=== PATIENT | female | born 1975 | race Caucasian/White ===

== ENCOUNTER 2020-07-21 06:54 | Outpatient (NON) | payer BC, SELFPAY ==
[2020-07-22 01:18] LABS: SARS-CoV-2 RNA PCR Negative
== END 2020-07-21 06:55 ==
PROVIDERS: Visit Provider Family Medicine
DX: Z20.828 Contact with and (suspected) exposure to other viral communicable diseases (principal); J02.9 Acute pharyngitis, unspecified; R50.9 Fever, unspecified
CPT/HCPCS: 87635; C9803; U0003

== ENCOUNTER 2020-07-24 15:48 | Emergency (ER) | payer BC, SELFPAY ==
[2020-07-24 15:54] VITALS: BP 112/76; PULSE 112; RESP 12; TEMP 36.9; O2SAT 99
--- NOTE | 2020-07-24 16:45 | ED.NAVMDI ---
HPI - Nausea/Vomiting/Diarrhea General Chief complaint: Nausea/Vomiting/Diarrhea Stated complaint: nausea/diarrhea/fever Source: patient and RN notes reviewed Limitations: no limitations History of Present Illness HPI Narrative: The patient, a non-smoker/nondrinker with a history of gallbladder disease, presents with nausea. Patient states she has nausea like her prior episodes before cholecystectomy in August of this year. At that time postop pathology showed chronic cholecystitis with focal fibrosis, sludge, chronic inflammation. During her work-up she had a normal CT scan of the abdomen, HIDA scan showing EF of 23%, and stable ultrasound showing only sludge. She complains of a 2-week history now of nausea, mild epigastric discomfort essentially unrelieved with recommended OTC Pepcid. There is associated weight loss of 7 to 10 pounds,and a T-max last week 100.2. 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 Her LMP was earlier this month about 3 weeks ago, she declines testing. Patient advised to continue Pepcid, and see prior doctors. Related Data Allergies Allergy/AdvReac Type Severity Reaction Status Date / Time clindamycin Allergy Unknown NAUSEA, Verified 07/24/20 16:54 TONGUE SWELLING erythromycin base Allergy Unknown Rash Verified 07/24/20 16:54 Penicillins Allergy Unknown Rash/HIVES Verified 07/24/20 16:54 diphenhydramine AdvReac Unknown DROWSINESS Verified 07/24/20 16:54 isopropyl alcohol AdvReac Unknown SKIN Verified 07/24/20 16:54 IRRITATION Review of Systems Review of Systems: Narrative: General/Constitutional: No weight loss,fever Eyes: N0: Redness,discharge Ears/Nose/Throat: No: Epistaxis,ear discharge Respiratory: Denies: Hemoptysis Gastrointestinal: No Vomiting, Bleeding-rectal Skin: No Lumps, eruption Neurologic: No Focal Weakness,Sz Hematologic: Denies: Petechiae/Purpura Psychiatric: No: Suicida ideationl All Other Systems: Reviewed and Negative [facility] Past Medical History Medical History (Updated 07/25/20 @ 00:00 by Apryl Garnica) Anxiety Surgical History Surgical History H/O hemorrhoidectomy As an H/O wisdom tooth extraction Approximately 2014 History of throat surgery Approximately 2009 Status post laparoscopic cholecystectomy 08/24/19 Family History Family History Grandparent Family history of lung cancer Family history of malignant neoplasm of breast Other Diabetes mellitus Social History Social History Smoking status: Never smoker Alcohol intake: current 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 There is no relevant family history pertinent to the presenting complaint Exam Narrative: Exam Narrative: General Appearance: Well appearing, Conjunctiva clear Mouth/Throat: Normal appearing, Normal lips Neck: Supple Respiratory: Airway patent, No respiratory distress Cardiovascular: RRR Abdomen: Soft, Non-tender, Musculoskeletal: Full ROM Skin: Warm, Dry Neurological: A&O x3,, Normal affect Course Vital Signs Vital signs: Vital Signs Temperature 98.5 F 07/24/20 15:54 Pulse Rate 112 H 07/24/20 15:54 Respiratory Rate 12 07/24/20 15:54 Blood Pressure 112/76 07/24/20 15:54 Pulse Oximetry 99 07/24/20 15:54 Temperature 98.5 F 07/24/20 15:54 Pulse Rate 112 H 07/24/20 15:54 Respiratory Rate 12 07/24/20 15:54 Blood Pressure 112/76 07/24/20 15:54 Pulse Oximetry 99 07/24/20 15:54 Discharge Plan Discharge Clinical Impression: Nausea, Weight
== END 2020-07-24 17:03 | disposition home or self-care (01) ==
PROVIDERS: Emergency Provider Emergency Medicine; PCP Family Medicine
DX: R11.0 Nausea (principal); R63.4 Abnormal weight loss; Z68.25 Body mass index [BMI] 25.0-25.9, adult
CPT/HCPCS: 99213; G0463

== ENCOUNTER → 2020-11-10 00:54 | Outpatient (CLI) | payer BC, SELFPAY ==
[2020-11-10 19:49] LABS: SARS-CoV-2 RNA PCR Negative
== END ==
PROVIDERS: PCP Family Medicine; Visit Provider Internal Medicine Gastroenterology
DX: Z01.812 Encounter for preprocedural laboratory examination (principal); Z20.822 Contact with and (suspected) exposure to COVID-19
CPT/HCPCS: C9803; U0003; U0005

== ENCOUNTER 2020-11-13 01:59 | Day surgery (SDC) | payer BC, SELFPAY ==
[2020-10-27 14:25] VITALS: BMI 24.5
[2020-11-13 09:01] VITALS: BP 99/71; PULSE 102; RESP 18; TEMP 36.7; O2SAT 98; BMI 24.0
--- NOTE | 2020-11-13 09:07 | P.PNAN_ITS ---
Anes - Initial Pre Proc Eval Procedure: Operation Date: 11/13/20 10:00 Proposed Procedures p Esophagogastroduodenoscopy & Colonoscopy - Aki Lantigua MD Date/Time: 11/13/20 09:07 Surgeon: Aki Lantigua MD Pre Op Diagnosis: Loose stools, Nausea, abdominal pain Patient Data Age: 45 Gender: F Height: 5 ft 3 in Weight: 61.5 kg Last Vital Signs Temp 98.1 F 11/13/20 09:01 Pulse 102 H 11/13/20 09:01 Resp 18 11/13/20 09:01 BP 99/71 L 11/13/20 09:01 Pulse Ox 98 11/13/20 09:01 Allergies Allergy/AdvReac Type Severity Reaction Status Date / Time clindamycin Allergy Unknown NAUSEA, Verified 11/13/20 08:59 TONGUE SWELLING erythromycin base Allergy Unknown Rash Verified 11/13/20 08:59 Penicillins Allergy Unknown Rash/HIVES Verified 11/13/20 08:59 diphenhydramine AdvReac Unknown DROWSINESS Verified 11/13/20 08:59 isopropyl alcohol AdvReac Unknown SKIN Verified 11/13/20 08:59 IRRITATION Home Medications Medication Instructions Recorded Confirmed Type ondansetron HCl 4 mg tablet 4 mg PO Q8H 09/15/20 09/18/20 History prochlorperazine maleate 10 mg 10 mg PO Q8H PRN 09/15/20 09/18/20 History tablet All Day Allergy (cetirizine) 10 mg PO DAILY 10/27/20 10/27/20 History dicyclomine See Rx Instructions PO QID PRN 10/27/20 10/27/20 History Patient hx anesthesia problems: none Family hx anesthesia problems: none PMFSH Past Medical History Medical History Anxiety Surgical History Surgical History H/O hemorrhoidectomy As an infant H/O wisdom tooth extraction Approximately 2014 History of throat surgery Approximately 2008 Status post laparoscopic cholecystectomy 08/24/19 Family History Family History Grandparent Family history of lung cancer Family history of malignant neoplasm of breast Other Diabetes mellitus Social History Social History (Updated 09/18/20 @ 11:01 by Janette Hernandez CMA) Smoking status: Never smoker Alcohol intake: current Alcohol use details: OCCATIONALLY Substance use: never Living arrangements: with family 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 Questions were solicited and answers provided to the satisfaction of the patient/family/POA.
[2020-11-13] MEDS: LACTATED RINGERS 1,000 ML 150 ML IV CONT (09:11)
[2020-11-13] MEDS: BENZOCAINE (*SP) 60 ML SPRAY CAN (HURRICAINE) 1 SPRAY MUCOUS MEM (09:26)
--- NOTE | 2020-11-13 09:38 | PM.HPGS ---
History of Present Illness History of Present Illness Consent: Risks, benefits, and alternatives have been discussed and questions answered. Patient agrees to proceed with procedure. Chief complaint: Loose stools, Nausea, abdominal pain Narrative: Becca Bowens is a 45 year old female with abdominal cramping and nausea after eating certain meals, better after changed her diet, using bentyl prn Review of Systems Constitutional: Constitutional: Denies headache(s) and Denies weakness Eyes: Eyes: Denies blurry vision ENT: Reports Normal hearing present, Denies headache(s) and Denies neck pain Cardiovascular: Cardiovascular: Denies chest pain and Denies dyspnea Respiratory: Respiratory: Denies dyspnea Gastrointestinal: Gastrointestinal: Reports no additional gastrointestinal complaints Genitourinary: Genitourinary: Denies dysuria Musculoskeletal: Musculoskeletal: Denies neck pain Integumentary/Breasts: Skin/Breast: Denies dry skin Neurologic: Reports Normal hearing present, Denies headache(s) and Denies weakness Psychiatric: Psychiatric: Denies anxiety Endocrine: Endocrine: Denies change in body appearance Hematologic/Lymphatic: Hematologic/Lymphatic: Denies easy bleeding Allergic/Immunologic: Allergic/Immunologic: Denies urticaria PMF Past Medical History Medical History (Updated 11/13/20 @ 09:39 by Aki Lantigua MD) Anxiety Colon cancer screening Epigastric pain Nausea Surgical History Surgical History H/O hemorrhoidectomy As an infant H/O wisdom tooth extraction Approximately 2014 History of throat surgery Approximately 2008 Status post laparoscopic cholecystectomy 08/24/19 Family History Family History Grandparent Family history of lung cancer Family history of malignant neoplasm of breast Other Diabetes mellitus Social History Social History (Updated 09/18/20 @ 11:01 by Janette Hernandez CMA) Smoking status: Never smoker Alcohol intake: current Alcohol use details: OCCATIONALLY Substance use: never Living arrangements: with family 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 Gender identity (if verbalized by the patient): Female Spiritual care concerns: No Meds Home Medications and Allergies Home Medications Medication Instructions Recorded Confirmed Type ondansetron HCl 4 mg tablet 4 mg PO Q8H 09/15/20 09/18/20 History prochlorperazine maleate 10 mg 10 mg PO Q8H PRN 09/15/20 09/18/20 History tablet All Day Allergy (cetirizine) 10 mg PO DAILY 10/27/20 10/27/20 History dicyclomine See Rx Instructions PO QID PRN 10/27/20 10/27/20 History Allergies Allergy/AdvReac Type Severity Reaction Status Date / Time clindamycin Allergy Unknown NAUSEA, Verified 11/13/20 08:59 TONGUE SWELLING erythromycin base Allergy Unknown Rash Verified 11/13/20 08:59 Penicillins Allergy Unknown Rash/HIVES Verified 11/13/20 08:59 diphenhydramine AdvReac Unknown DROWSINESS Verified 11/13/20 08:59 isopropyl alcohol AdvReac Unknown SKIN Verified 11/13/20 08:59 IRRITATION Vital Signs Vital Signs - 24 hr 11/13/20 09:01 Temperature 98.1 F Pulse Rate 102 H Respiratory Rate 18 Blood Pressure 99/71 L Pulse Oximetry 98 Exam Const: General: comfortable and no acute distress HENMT: General nose exam: Normal nares present Eyes: General: appearance normal, both eyes and all related structures Neck: Neck: no JVD Resp: Auscultation: clear to auscultation bilaterally Cardio: Rate: regular rate Rhythm: regular rhythm GI: Inspection: non-distended GI Palp: Yes Soft to palpation Skin: General skin exam: normal color Neuro: General: gait normal Speech: normal speech Extrem: General: normal to inspection Psych: Mental Status: mental status grossly normal Assessment and Plan A
[2020-11-13 09:57] VITALS: BP 89/51; PULSE 92; RESP 21; O2SAT 98
[2020-11-13 10:07] VITALS: BP 99/56; PULSE 82; RESP 13; O2SAT 100
[2020-11-13 10:17] VITALS: BP 99/62; PULSE 80; RESP 20; O2SAT 100
== END 2020-11-13 10:28 | disposition home or self-care (01) ==
PROVIDERS: PCP Family Medicine; Visit Provider Internal Medicine Gastroenterology
PROC: 0DJ08ZZ Inspection of Upper Intestinal Tract, Via Natural or Artificial Opening Endoscopic (ICD-10-PCS; CPT 43235; principal; 2020-11-13 10:00)
DX: R11.0 Nausea (principal); R10.13 Epigastric pain; R10.30 Lower abdominal pain, unspecified; Z12.11 Encounter for screening for malignant neoplasm of colon; K64.8 Other hemorrhoids; F41.9 Anxiety disorder, unspecified
CPT/HCPCS: 43239; 45378; 88305; J2704; J7120

== ENCOUNTER → 2021-02-22 17:58 | Outpatient (CLI) | payer BC, SELFPAY ==
--- NOTE | ~2021-02-22 | XR_ITS ---
EXAMINATION:XR cervical spine min 6V DATE: 02/22/2021 18:39 INDICATION: Neck pain TECHNIQUE: AP, lateral in neutral, flexion, extension, bilateral oblique, lateral swimmers and odonto id views of the cervical spine are provided. COMPARISON: None FINDINGS: Alignment is normal. There is no laxity with flexion or extension. There is mild multilevel facet and uncovertebral joint osteoarthritis. The odontoid is intact. No fracture is identified. The re is mild loss of intervertebral disc space height at C6-7. Prevertebral soft tissues are normal. IMPRESSION: 1. Mild cervical spondylosis without acute findings. Reviewed, dictated and finalized at location B.
--- NOTE | ~2021-02-22 | XR_ITS ---
EXAMINATION: XR thoracic spine 2V DATE: 02/22/2021 18:39 INDICATION: Thoracic back pain TECHNIQUE: AP and lateral views of the thoracic spine are obtained. COMPARISON: None. FINDINGS: There is dextrocurvature of the midthoracic spine. Bone alignment is normal. There is no fr acture. The vertebral body heights are maintained. There is mild loss of intervertebral disc space he ight in the mid and lower thoracic spine. Small degenerative osteophytes project from the anterior en dplates of multiple vertebral bodies. Surgical clips in the right upper quadrant are likely from prio r cholecystectomy. IMPRESSION: 1. Mild thoracic spondylosis without acute findings. Reviewed, dictated and finalized at location B.
== END ==
PROVIDERS: Visit Provider Chiropractor
DX: R20.2 Paresthesia of skin (principal); M47.892 Other spondylosis, cervical region
CPT/HCPCS: 72052; 72070

== ENCOUNTER 2021-03-05 15:37 | Outpatient (CLI) | payer BC, SELFPAY ==
--- NOTE | ~2021-03-05 | MM_ITS ---
EXAMINATION: MM screening liya BI w j carlos HISTORY: Screening TECHNIQUE: Craniocaudal and mediolateral oblique 3-D tomosynthesis images were obtained and synthetic 2-D images were generated. CAD analysis was submitted and interpreted. COMPARISON: Comparison to multiple prior studies sequentially, with oldest reviewed study dated 02/15. BREAST PARENCHYMAL COMPOSITION: The breasts are heterogeneously dense, which may obscure small masses . FINDINGS: There is no evidence of suspicious mass, calcification, or architectural distortion to sugg est malignancy in either breast. There has been no suspicious interval change. IMPRESSION: 1. No mammographic evidence of malignancy. 2. Recommend routine screening mammography in one year. BI-RADS Category 1: Negative Reviewed, dictated and finalized at location A.
== END 2021-03-05 15:38 | disposition home or self-care (01) ==
LOC: ANHIMG 15:40
PROVIDERS: PCP Family Medicine; Visit Provider Nurse Practitioner Obstetrics & Gynecology
DX: Z12.31 Encounter for screening mammogram for malignant neoplasm of breast (principal)
CPT/HCPCS: 77063; 77067

== ENCOUNTER → 2021-03-14 06:58 | Outpatient (CLI) | payer BC, SELFPAY ==
--- NOTE | ~2021-03-14 | MR_ITS ---
EXAMINATION: MR cervical spine wo con DATE: 03/14/2021 07:39 INDICATION: Disc bulge. TECHNIQUE: Magnetic resonance imaging (MRI) of the cervical spine was performed without intravenous c ontrast. Sequences included sagittal T2-weighted FSE, sagittal T2-weighted FS FSE, sagittal T1-weight ed FSE, axial MERGE, and axial T2-weighted FSE. COMPARISON: Cervical spine radiographs 02/22/2021 FINDINGS: Bone alignment is normal. Vertebral body heights are normal. There is mildly decreased disc height at C6-C7. The spinal cord signal intensity is normal. The following disc levels are specifica lly discussed: C2-C3: The disc does not extend beyond the endplate margin. There is no uncovertebral joint osteoarth ritis. There is mild bilateral facet joint osteoarthritis. There is no neural foraminal stenosis. The re is no central canal stenosis. C3-C4: There is a left central extrusion. There is no uncovertebral joint osteoarthritis. There is no facet joint osteoarthritis. There is no neural foraminal stenosis. There is mild central canal steno sis. C4-C5: The disc does not extend beyond the endplate margin. There is no uncovertebral joint osteoarth ritis. There is mild left facet joint osteoarthritis. There is no neural foraminal stenosis. There is no central canal stenosis. C5-C6: There is a central protrusion. There is mild bilateral uncovertebral joint osteoarthritis. The re is no facet joint osteoarthritis. There is mild left neural foraminal stenosis. There is mild cent ral canal stenosis. C6-C7: The disc is bulging. There is moderate bilateral uncovertebral joint osteoarthritis. There is no facet joint osteoarthritis. There is mild bilateral neural foraminal stenosis. There is mild centr al canal stenosis. C7-T1: The disc does not extend beyond the endplate margin. There is no uncovertebral joint osteoarth ritis. There is mild bilateral facet joint osteoarthritis. There is no neural foraminal stenosis. The re is no central canal stenosis. IMPRESSION: 1. Mild cervical spondylosis. Reviewed, dictated and finalized at location A.
== END ==
PROVIDERS: PCP Family Medicine; Visit Provider Chiropractor
DX: M50.20 Other cervical disc displacement, unspecified cervical region (principal); M47.892 Other spondylosis, cervical region
CPT/HCPCS: 72141

== ENCOUNTER → 2021-08-08 02:44 | Outpatient (CLI) | payer BC, SELFPAY ==
[2021-08-08 20:49] LABS: SARS-CoV-2 RNA PCR Negative
== END ==
PROVIDERS: PCP Family Medicine; Visit Provider Family Medicine
DX: R68.89 Other general symptoms and signs (principal); Z20.822 Contact with and (suspected) exposure to COVID-19
CPT/HCPCS: C9803; U0003; U0005

== ENCOUNTER 2022-08-30 14:53 | Outpatient (CLI) | payer BC, SELFPAY ==
--- NOTE | ~2022-08-30 | MM_ITS ---
EXAMINATION: MM screening liay BI w j carlos HISTORY: Screening TECHNIQUE: Craniocaudal and mediolateral oblique 3-D tomosynthesis images were obtained and synthetic 2-D images were generated. CAD analysis was submitted and interpreted. COMPARISON: Comparison to multiple prior studies sequentially, with oldest reviewed study dated 02/15. BREAST PARENCHYMAL COMPOSITION: The breasts are heterogeneously dense, which may obscure small masses . FINDINGS: There is no evidence of suspicious mass, calcification, or architectural distortion to sugg est malignancy in either breast. There has been no suspicious interval change. IMPRESSION: 1. No mammographic evidence of malignancy. 2. Recommend routine screening mammography in one year. BI-RADS Category 1: Negative Reviewed, dictated and finalized at location A. PUSHER
== END 2022-08-30 14:54 | disposition home or self-care (01) ==
LOC: ANHIMG 14:55
PROVIDERS: PCP Nurse Practitioner Family; Visit Provider Nurse Practitioner Obstetrics & Gynecology
DX: Z12.31 Encounter for screening mammogram for malignant neoplasm of breast (principal)
CPT/HCPCS: 77063; 77067

== ENCOUNTER 2025-02-17 08:27 | Outpatient (CLI) | payer BC, SELFPAY ==
--- OUTSIDE RECORDS SUMMARY | 2025-02-17 08:30 | XMS_ITS | Clinical Summary ---
Author Organization [facility] [employer] Address [address] [place] [address] Care Team Providers Care Adjunct Business Instructor Name Role Phone Florencia Tijerina MD Primary Care Provider [phone] Source Comments [facility],non-owned Affiliates and Associated Physician Practices is amultiple site organization consisting of ambulatory clinics and hospital sitesin [place], [place], [place] and [place]. This disclosure is being madepursuant to the Care Everywhere program and may not contain all information available regarding this patient. Last updated 18.[facility] [employer] Allergies Active Allergy Reactions Criticality Noted Date Comments Erythromycin Urticaria Medium 09/09/2023 Penicillins Urticaria Medium 09/09/2023 Medications * Be aware that medications may not be up to date on this document. Alwaysverify current medications with the patient. 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 Gender Identity Not on file Sexual Orientation Not on file Last Filed Vital Signs Vital Sign Reading Time Taken Comments Blood Pressure 112/69 09/09/2023 2:01 PM CLEANING ATTENDANT Pulse 83 09/09/2023 2:01 PM CLEANING ATTENDANT Temperature - - Respiratory Rate - - Oxygen Saturation - - Inhaled Oxygen Concentration - - Weight 68 kg (150 lb) 09/09/2023 2:01 PM CLEANING ATTENDANT Height - - Body Mass Index - - Plan of Treatment Health Maintenance Due Date Last Done Comments COLOGUARD (AGES 45-75) - COL ON CA SCREENING 1975 COLON MONITORING 1975 COLONOSCOPY - COLON CA SCREENING 1975 CT COLONOGRAPHY - COLON CA SCREENING 1975 Colorectal Cancer Screening 1975 FIT - COLON CA SCREENING 1975 FLEX SIG - COLON CA SCREENING 1975 MAMMOGRAM 1975 HIV SCREENING 10/14/1990 HEPATITIS C SCREENING 10/10/1993 DTAP/TDAP/TD VACCINES (1 - Tdap) 10/14/1994 HEPATITIS B VACCINE (1 of 3 - 19+ 3-dose series) 10/14/1994 PAP SMEAR 10/14/1996 COVID-19 VACCINE (4 - 2023-2 5 season) 2024 07/30/2021, 01/27/2021, 01/06/2021 DEPRESSION SCREENING 08/04/2024 08/28/2023 INFLUENZA VACCINE (#1) 2025 ZOSTER VACCINE (1 of 2) 10/14/2025 LIPID TESTING 07/03/2028 07/03/2023 HIB VACCINE Aged Out No longer eligi ble based on patient's age to complete this topic HPV VACCINE Aged Out No longer eligi ble based on patient's age to complete this topic MENINGOCOCCAL (Group B) VACCINE SHARED DECISION-MAKING Aged Out No longer eligible based on patient's age to complete this topic MENINGOCOCCAL GROUPS A/C/Y/W VACCINE Aged Out No longer eligible b ased on patient's age to complete this topic Insurance AKI ANTHEM Care Teams Adjunct Business Instructor Relationship Specialty Start Date End Date Florencia Tijerina MD [address] [place] [address] PCP - General 08/25/19
[2025-02-17 10:18] LABS: Hematocrit 40.4 % (37.0-47.0); Hemoglobin 13.2 g/dL (12.0-15.0); Immature Granulocyte Percent A 0.2 % (0-0.5); Lymphocytes Absolute Auto 1.51 K/mm3 (0.9-3.2); Mean Corpuscular HGB Conc 32.7 g/dl (32-36); Mean Corpuscular Hemoglobin 31.7 pg (26-34); Mean Corpuscular Volume 96.9 fl (80-100); Nucleated Red Blood Cells Absolute Auto 0.000 K/mm3 (0.0-0.012); Nucleated Red Blood Cells Perc 0.0 % (0.0-0.2); Platelet Count Result 206 k/mm3 (150-375); Red Blood Count 4.17 M/mm3 (4.2-5.4); White Blood Count 4.6 K/mm3 (4.5-10.0)
[2025-02-17 10:35] LABS: Alanine Aminotransferase 14 U/L (6-35); Albumin Level 4.1 g/dL (3.5-5.1); Alkaline Phosphatase 53 U/L (38-126); Anion Gap 5 mmol/L (4-12); Aspartate Amino Transferase 36 U/L (14-36); Bilirubin,Total 0.4 mg/dL (0.2-1.3); Blood Urea Nitrogen 14 mg/dL (7-17); Calcium 9.0 mg/dL (8.4-10.2); Carbon Dioxide 29 mmol/L (22-30); Chloride 103 mmol/L (98-107); Cholesterol 169 mg/dL (0-200); Estimated Glomerular Filt Rate > 60; Glucose 87 mg/dL (65-110); HDL Direct 68 mg/dL; Potassium 4.1 mmol/L (3.4-5.0); Sodium 137 mmol/L (137-145); Total Protein 7.0 g/dL (6.3-8.2); Triglycerides 47 mg/dL (<150)
[2025-02-17 11:10] LABS: Thyroid Stimulating Hormone 3.490 uIU/mL (0.465-4.680)
== END 2025-02-17 08:28 | disposition home or self-care (01) ==
LOC: ANHGOSHLAB 08:27
PROVIDERS: PCP Family Medicine; Visit Provider Student in an Organized Health Care Education/Training Program
DX: Z00.00 Encounter for general adult medical examination without abnormal findings (principal); Z13.220 Encounter for screening for lipoid disorders; Z13.29 Encounter for screening for other suspected endocrine disorder; Z13.0 Encounter for screening for diseases of the blood and blood-forming organs and certain disorders involving the immune mechanism; F41.1 Generalized anxiety disorder
CPT/HCPCS: 36415; 80053; 80061; 84443; 85025

== ENCOUNTER 2025-03-08 08:54 | Emergency (ER) | payer BC, SELFPAY ==
--- NOTE | ~2025-03-08 | XR_ITS ---
XR knee LT min 4V 03/08/2025 10:28 INDICATION: Left knee pain after recent injury PROCEDURE: 4 views left knee COMPARISON: No prior studies for comparison. FINDINGS: Fracture, dislocation or subluxation is not identified. No significant joint effusion. The soft tissues appear within normal limits. No foreign bodies are identified. IMPRESSION: 1: NO ACUTE BONE OR JOINT ABNORMALITY IDENTIFIED. Reviewed, dictated and finalized at location A.
[2025-03-08 09:25] VITALS: BP 133/79; PULSE 81; RESP 20; TEMP 36.2; O2SAT 100
--- NOTE | 2025-03-08 10:15 | ED.FEMALEGU ---
HPI - Female Genitourinary General Chief complaint: Urogenital-Female Stated complaint: Blood in unine issues with knees Source: patient and RN notes reviewed Mode of arrival: ambulatory Limitations: no limitations History of Present Illness HPI Narrative: 49-year-old female presents [facility] complaining of possible bloody urine. Patient is unsure if it is her period or she is having bloody urine. Patient denies any blood in toilet but states she knows blood on the toilet paper and has a very scant amount of bright red blood on her pad. Patient stated started as brown an al over the last 2 weeks is became more bright red. Reports the discharge is very scant. Patient says she is going through menopause and has been having irregular periods. Patient says she had intermittent right flank pain concurrently has no flank pain. Patient denies any vaginal discharge, pelvic pain, dysuria, frequency, hesitancy, fevers, body aches, chills, abdominal pain, nausea vomiting, diarrhea, or other symptoms. Patient has a follow-up with her OBGYN this coming for her symptoms. Patient has a history of a cholecystectomy. Patient is also complaining of bilateral knee pain for the last 2 weeks. Patient said she wear heels and thought she might have sprained her left knee when wearing them. Since then her left knee is not got much better now her right knee is beginning to her because she states she feels like she is over compensating from her left knee. Patient denies any falls or injuries, numbness tingling, or other symptoms. Patient has been doing rice therapy with some relief. Related Data Home Medications ?Medication ?Instructions ?Recorded ?Confirmed ?Last Taken ?Type All Day Allergy (cetirizine) 10 mg PO DAILY 10/27/20 02/17/25 Unknown History dicyclomine 10 mg capsule See Rx Instructions PO QID PRN 10/27/20 02/17/25 Unknown History Abdominal Discomfort esclzltufcec-mavhlivy-bwgp tablet PO 02/17/25 02/17/25 Unknown History fumarate 18 mg-folic acid 400 mcg tablet (One-A-Day Women's Complete) Allergies Allergy/AdvReac Type Severity Reaction Status Date / Time clindamycin Allergy Unknown NAUSEA, Verified 03/08/25 09:04 TONGUE SWELLING erythromycin base Allergy Unknown Rash Verified 03/08/25 09:04 Penicillins Allergy Unknown Rash/HIVES Verified 03/08/25 09:04 diphenhydramine AdvReac Unknown DROWSINESS Verified 03/08/25 09:04 isopropyl alcohol AdvReac Unknown SKIN Verified 03/08/25 09:04 IRRITATION Review of Systems Review of Systems: CONSTITUTIONAL: Denies fever, chills, or sweats. EYES: Denies visual changes, redness, or discharge. ENT: Denies rhinorrhea, congestion, sore throat, or otalgia. CARDIOVASCULAR: Denies chest pain, palpitations, or edema. RESPIRATORY: Denies cough or dyspnea. GASTROINTESTINAL: Denies abdominal pain, nausea, vomiting, or diarrhea. GENITOURINARY: Denies dysuria, hesitancy, frequency, vaginal discharge, pelvic pain, vaginal irritation, or hematuria. Positive for vaginal bleeding. SKIN: Denies rash or itching. MUSCULOSKELETAL: Denies back pain, joint pain, or myalgia. Positive for bilateral knee pain. NEUROLOGIC: Denies headache, numbness, or weakness. PSYCHIATRIC: Denies anxiety or depression. All other systems reviewed are negative, except as documented in HPI. [facility] Past Medical History Medical History IBS (irritable bowel syndrome) Colon cancer screening Nausea Epigastric pain Anxiety Surgical History Surgical History Hx of esophagogastroduodenoscopy 4.12.21 normal Status post laparoscopic cholecystectomy 08/24/19 H/O hemorrhoidectomy As an infant History of throat surgery Approximately 2008 H/O wisdom tooth extraction Approximately 2014 Family History Family History Grandparent Family history of lung cancer Family history of malignant neoplasm of breast Other Diabetes mellitus Social History Social History Smoking status: Never smoker Alcohol intake: current Drinks per week: 1 Substance use: never Substance use type: does not use Do You Feel Safe in your Home?: Yes Living arrangements: with family Occupation/Education: occupation 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 There is no relevant family history pertinent to the patient complaint. Exam Narrative: GENERAL: This is a well-nourished, well-developed adult, in no apparent distress. They are non ill-appearing, nontoxic appearing. HEAD: normocephalic, atraumatic. EYES: Sclera clear/white. Conjunctiva normal. Vision is grossly intact. Extraocular movements intact EARS: External ears normal, Hearing grossly intact. NOSE: External nose normal THROAT: Mucous membranes moist, NECK: Neck supple, CARDIOVASCULAR: Regular rate and rhythm without murmurs, gallops, or rubs. RESPIRATORY: Clear to auscultation. Breath sounds equal bilaterally. No wheezes, rales, or rhonchi. GASTROINTESTINAL: Abdomen soft, non-tender, nondistended. Bowel sounds are active. No hepato-splenomegaly, or palpable masses. No guarding or rigidity. No rebound tenderness. GENITOURINARY: Patient declined pelvic and speculum exam. SKIN: warm, Dry, intact with no suspicious lesions or rash, good texture and turgor. NEURO: awake, alert, and oriented to person, place and time. There were no obvious focal neurologic abnormalities. EXTREMITIES: Left knee: No obvious deformity, swelling, bruising, redness, injury. Patient tender with knee extension, normal full range of motion of knee. Mild tenderness to palpation throughout the knee. No valgus or varus laxity. Neurovascular status intact distal injury. Capillary refill less than 2 seconds. Right knee: No S deformity, swelling, bruising redness, injury. Nontender through full range of motion. No bony tenderness. No valgus or varus laxity. Neurovascular status intact. Capillary refill less than 2 seconds. BACK: Nontender without deformity. No CVA tenderness. Course Course Emergency Course: Portions of this record may have been created with voice recognition software Level of Care: Express Care Visit Vital Signs Vital signs: Vital Signs Temperature 97.2 F L 03/08/25 09:25 Pulse Rate 81 03/08/25 09:25 Respiratory Rate 20 03/08/25 09:25 Blood Pressure 133/79 03/08/25 09:25 Pulse Oximetry 100 03/08/25 09:25 Oxygen Delivery Room Air 03/08/25 09:25 Temperature 97.2 F L 03/08/25 09:25 Pulse Rate 81 03/08/25 09:25 Respiratory Rate 20 03/08/25 09:25 Blood Pressure 133/79 03/08/25 09:25 Pulse Oximetry 100 03/08/25 09:25 Oxygen Delivery Room Air 03/08/25 09:25 Reviewed MDM - Female Genitourinary MDM Narrative Medical decision making narrative: Urine dipstick is show blood in her urine however is may be related to vaginal bleeding which could be from her irregular periods. No evidence of infection urine dipstick. Urine culture pending. Patient has no urinary symptoms. Patient has intermittent right flank pain that is not seem to be consistent with kidney stone. Patient has no pain currently. Offered patient pelvic exam he declined states she has an appoint with her OBGYN this coming . Patient likely has knee sprain, no abnormalities to right knee on exam. Will obtain x-ray of left knee given exam findings and pain. X-ray left knee negative for any fracture or acute findings. Will refer patient orthopedist given persistent symptoms of left knee pain. Offered patient Fidel wrap however she says she has a knee brace at home she will wear. Discussed physical exam findings. Advised supportive measures and signs/symptoms to go to the ER. Pt is appropriate for outpt treatment and f/u. Differential Diagnosis Differential diagnosis: Likely urinary tract infection, cystitis, dysmenorrhea and other (Knee sprain, arthritis, ligament injury, tendon injury, knee fracture) Lab Data Attestation: I reviewed the patient's lab results. Labs: Lab Results 03/08/25 Range/Units 09:30 POC Urine Color Light/pale POC Urine Clarity Clear POC Urine pH 7.0 POC Ur Specif [place] 1.010 POC Urine Protein Negative (Negative) POC Ur Glucose (UA) Negative (Negative) POC Urine Ketones Negative (Negative) POC Urine Blood 1+ (Negative) POC Urine Nitrite Negative (Negative) POC Urine Bilirubin Negative (Negative) POC Urine Urobilinogen 0.2 POC U Leukocyte Esteras Negative (Negative) Imaging Data Radiologist's impression: ITS Impressions Knee X-Ray 03/08/25 10:46 IMPRESSION: 1: NO ACUTE BONE OR JOINT ABNORMALITY IDENTIFIED. Critical Care Time Critical Care Time Critical Care Time: No Discharge Plan Discharge Clinical Impression: Dysmenorrhea Strain of left knee Qualifiers: Encounter type: initial encounter Qualified Code(s): S86.912A - Strain of unspecified muscle(s) and tendon(s) at lower leg level, left leg, initial encounter Patient Disposition: Home Condition: Stable Instructions: Dysmenorrhea (ED), Knee Pain (ED) Additional Instructions: The x-ray left knee was negative for any fracture or acute findings. Rest and elevate the leg; bear weight as tolerated Apply ice 15-20 minute intervals several times a day Keep it wrapped with FIDEL or use a knee brace Motrin 600mg -800mg every 6-8 8 hours, alternate with Tylenol 1000mg every 6 a 8 hours as needed Follow up with your primary care provider orthopedist in 1 week if pain persist. The urinal culture will be sent off. You will be contacted if bacteria grows in your could urine culture own be prescribed appropriate antibiotics at that time. Please follow-up with your OBGYN this week for your vaginal bleeding. Please go to the ER if he developed fevers, severe abdominal pain, going through 1 pad an hour, passing large blood clots, nausea vomiting, or any concerns. Patient Language: Romansh Prescriptions: No Action One-A-Day Women's Complete 18 mg iron- 400 mcg tablet PO All Day Allergy (cetirizine) 10 mg PO DAILY dicyclomine 10 mg capsule See Rx Instructions PO QID PRN (Reason: Abdominal Discomfort) Rx Instructions: 1-2 caps PO four times daily as needed for abdominal cramping. Follow-up/Referrals: Roger Weller MD [Physician] - Florencia Tijerina MD [Primary Care Provider] - Time of Disposition: 10:55
[2025-03-08 10:42] LABS: EDUAAPPEAR Clear; EDUABILI Negative (Negative); EDUABLOOD 1+ (Negative); EDUACOLOR1 Light/Pale; EDUAGLUCOSE Negative (Negative); EDUAKETONE Negative (Negative); EDUALEUKO Negative (Negative); EDUANITRATE Negative (Negative); EDUAPH 7.0; EDUAPROTEIN Negative (Negative); EDUASPGRAVITY 1.010; EDUAUROBILI 0.2
== END 2025-03-08 11:01 | disposition home or self-care (01) ==
PROVIDERS: PCP Family Medicine
DX: N94.6 Dysmenorrhea, unspecified (principal); S86.912A Strain of unspecified muscle(s) and tendon(s) at lower leg level, left leg, initial encounter; X58.XXXA Exposure to other specified factors, initial encounter
CPT/HCPCS: 73564; 81003; 87086; 99213; G0463